=== PATIENT | female | born 1990 | race Caucasian/White ===

== ENCOUNTER 2017-08-14 08:48 | Inpatient (IN) | payer OTHER ==
[2017-08-14 09:29] VITALS: BMI 28.5
[2017-08-14] MEDS ORDERED: Penicillin G Potassium 5 MU in Dextrose 5% In Water 50 ML IV ONE (10:07)
[2017-08-14] MEDS ORDERED: Oxytocin 30 UNIT 30 UNITS/500 ML BAG IV PRN (10:08)
[2017-08-14] MEDS ORDERED: Penicillin G Potassium 2.5 MU in Dextrose 5% In Water 50 ML IV SCH ×2 (10:15→14:00)
[2017-08-14] MEDS ORDERED: Lactated Ringer's 1,000 ML IV SCH (10:15)
[2017-08-14] MEDS ORDERED: Dextrose 5%/Lactated Ringer's 1,000 ML IV SCH (10:15)
--- NOTE | 2017-08-14 10:17 | OBHP ---
Datetime: 08/14/2017 10:12 IP Adm Impression: Term, intrauterine ; No Active Labor; Ruptured Membranes IP Admit Plan: Admit to unit; Initiate labor protocol Admit Comment, IP Provider: at 37+weeks came eith c/o srom at 8 am and irr cts, no vb, ,+fm.pt c/o pain 04/20. obhx 1 x pmh gdma1 med pnv all nkda pshh de soch de ssse +pooling,+nitrazine ve /-2 a/p at 37+weeks prom admit to l_d npo/iv labs pain gustavo gbs prophylaxsis ptocin for augmentation anticipate Pelvic Type - PN: Adequate Extremities - PN: Normal Abdomen - PN: Normal Back - PN: Normal Breast - PN: Normal Lungs - PN: Normal Heart - PN: Normal Thyroid - PN: Normal Neurologic - PN: Normal HEENT - PN: Normal General - PN: Normal FHR - Baseline A Provider: 130 Contraction Comments Provider: q1-5 Comments, ACOG Physical Exam: gravid,non tender ext no edema,no calf sse +poolin, +nitrazine IP Hx Assessment: The History has been Reviewed and is Current EGA AdmitDate IP: 37.0 Vital Signs Provider: Reviewed; Within Normal Limits IP Chief Complaint: Uterine contractions; Suspected ruptured membranes NICHD Variability Prov Fetus A: Moderate 6-25bpm NICHD Accel Fetus A IP Provider: 15X15 FHR Category Provider Fetus A: Category I Dilatation, Provider: 2 Effacement, Provider: 60 Station, Provider: -2 Genitourinary Exam: Normal DTRs - PN: Normal
[2017-08-14] MEDS ORDERED: Penicillin G 5 Million Unit Vial IVPB ONE (10:29)
[2017-08-14] MEDS ORDERED: Oxytocin 30 UNIT 30 UNITS/500 ML BAG IV ONE (11:00)
[2017-08-14 11:01] LABS: BASO % 0.3 % (0.0-2.0); EOS % 0.4 % (0.0-4.0); HEMATOCRIT 32.5 % (34.0-47.0); LYMPH # 5.1 K/uL (1.0-4.3); LYMPH % 44.4 % (20.0-40.0); MEAN CORPUSCULAR HEMOGLOBIN 25.1 pg (27.0-31.0); MEAN CORPUSCULAR HGB CONC 32.8 g/dL (33.0-37.0); MEAN PLATELET VOLUME 8.2 fL (7.2-11.7); MONO # 0.7 K/uL (0.0-0.8); MONO % 6.1 % (0.0-10.0); NRBC % 0.2 % (0.0-2.0); RED CELL DISTRIBUTION WIDTH 15.6 % (11.5-14.5); WHITE BLOOD COUNT 11.5 K/uL (4.8-10.8)
[2017-08-14 11:02] LABS: MEAN CELL VOLUME 76.7 fL (81.0-99.0)
[2017-08-14 11:06] LABS: RBC URINE 46 /hpf (0-3); URINE BILIRUBIN NEGATIVE (NEGATIVE); URINE BLOOD 1+ (NEGATIVE); URINE COLOR Yellow (YELLOW); URINE GLUCOSE (UA) NORMAL (Normal); URINE KETONE NEGATIVE (NEGATIVE); URINE LEUKOCYTE ESTERASE NEG Leu/uL (Negative); URINE PROTEIN 1+ mg/dL (NEGATIVE); URINE UROBILINOGEN NORMAL mg/dL (0.2-1.0); WBC URINE 4 /hpf (0-5)
[2017-08-14 11:23] LABS: CHLORIDE 105 mmol/L (98-107)
[2017-08-14 11:24] LABS: POTASSIUM 3.7 mmol/L (3.6-5.2); SODIUM 133 mmol/L (132-148)
[2017-08-14 11:26] LABS: ALB/GLOB RATIO 0.8 (1.0-2.1); ALKALINE PHOSPHATASE 119 U/L (38-126); AST/SGOT 24 U/L (14-36); BILIRUBIN,TOTAL 0.6 mg/dL (0.2-1.3); BLOOD UREA NITROGEN 5 mg/dL (7-17); CARBON DIOXIDE 19 mmol/L (22-30); GFR AFRICAN-AMERICAN > 60; GLUCOSE,RANDOM 71 mg/dL (65-105); TOTAL PROTEIN 6.6 g/dL (6.3-8.3)
[2017-08-14 11:27] LABS: ALT/SGPT 30 U/L (9-52)
[2017-08-14] MEDS ORDERED: Bupivacaine 0.125%/FentaNYL 200 ML EPI ONE (13:58)
[2017-08-14] MEDS ORDERED: Oxycodone/Acetaminophen 5/325 mg Tab PO PRN ×2 (17:10)
--- NOTE | 2017-08-14 17:11 | OBDS ---
DELIVERY PERSONNEL Delivery Doctor: Cem Montesinos MD Latexer: Loulou Purcell RN Anesthesiologist: Kate Conte MD MATERNAL INFORMATION Delivery Anesthesia: None Provider Comments: baby deliverd in jorge endometrium clean no com 9/9 LABOR SUMMARY EDC: 09/04/2017 00:00 LABOR INFORMATION Group B Beta Strep: Positive (Annotations: GBS positive in urine culture05/27/17, Dr. Montesinos notified . Call placed to [facility] @ 1030 today, no vaginal GBS culture done as per clinic staff, and that urine culture positive MEEK, Dr. Montesinos notified.) MEMBRANES Membranes Rupture Method: Spontaneous Rupture of Membranes: 08/14/2017 08:00 Length of Rupture (hrs): 8.95 Amniotic Fluid Color: Clear Amniotic Fluid Amount: Moderate Amniotic Fluid Odor: Normal STAGES OF LABOR Stage 3 hrs: 0 Stage 3 min: 3 VAGINAL DELIVERY Episiotomy: None Laceration Extension: Second Degree Laceration Type: Perineal Laceration Repair Note: repaied with 3 chromic Sponge Count Correct: Yes Sharps Count Correct: Yes BABY A INFORMATION Infant Delivery Date/Time: 08/14/2017 16:57 Method of Delivery: Vaginal Born in Route : No : N/A Forceps: N/A Vacuum Extraction: N/A Shoulder Dystocia : No SHOULDER DYSTOCIA BABY A Delivery Date/Time: 08/14/2017 16:57 PRESENTATION/POSITION BABY A Presentation: Cephalic Cephalic Presentation: Vertex Vertex Position: Left Occipital Anterior Breech Presentation: N/A PLACENTA INFORMATION BABY A Placenta Delivery Time : 08/14/2017 17:00 Placenta Method of Delivery: Spontaneous Placenta Status: Delivered SCORES BABY A Heart Rate 1 min: >100 bpm Resp Effort 1 min: Good Cry Reflex Irritability 1 min: Cough or Sneeze or Pulls Away Muscle Tone 1 min: Active Motion Color 1 min: Body [place], Extremities Blue Resuscitation Effort 1 min: Tactile Stimulation SCORE 1 MIN: 9 Heart Rate 5 min: >100 bpm Resp Effort 5 min: Good Cry Reflex Irritability 5 min: Cough or Sneeze or Pulls Away Muscle Tone 5 min: Active Motion Color 5 min: Body [place], Extremities Blue SCORE 5 MIN: 9 INFORMATION BABY A Gestational Age at Delivery: 37.0 Gestational Status: Term Infant Outcome : Liveborn Condition : Stable Sex: Male IDENTIFICATION/MEDS BABY A ID Band Number: [id number] ID Band Location: Left Leg; Left Arm Sensor Applied: Yes Sensor Number: [id number] Sensor Location : Cord Clamp Vitamin K Given : Aquamephyton 1 mg IM; Not Given Erythromycin Given: Not Given WEIGHT/LENGTH BABY A Birthweight (gms): 3800 Weight (lb): 8 Infant Weight (oz): 6 Infant Length Inches: 20.00 Length cms: 50.8 CORD INFORMATION BABY A No. Cord Vessels: 3 Nuchal Cord : N/A Nuchal Cord Other: N/A Cord Blood Taken: Yes Infant Suction: Mouth; Nose
[2017-08-15 08:15] LABS: BASO % 0.3 % (0.0-2.0); EOS # 0.1 K/uL (0.0-0.7); EOS % 0.3 % (0.0-4.0); HEMATOCRIT 33.6 % (34.0-47.0); LYMPH # 5.8 K/uL (1.0-4.3); LYMPH % 39.3 % (20.0-40.0); MEAN CELL VOLUME 76.3 fL (81.0-99.0); MEAN CORPUSCULAR HEMOGLOBIN 25.5 pg (27.0-31.0); MEAN CORPUSCULAR HGB CONC 33.4 g/dL (33.0-37.0); MEAN PLATELET VOLUME 8.1 fL (7.2-11.7); MONO % 6.8 % (0.0-10.0); NRBC % 0.1 % (0.0-2.0); WHITE BLOOD COUNT 14.8 K/uL (4.8-10.8)
--- NOTE | 2017-08-15 08:47 | OBPPN ---
Datetime: 08/15/2017 07:24 PP Pain Prov: Within normal limits PP Nausea Prov: Denies PP Flatus Prov: Yes PP BM Prov: No PP Breasts Prov: Normal PP Heart Prov: Normal PP Lungs Prov: Normal PP Abdomen/Uterus Prov: Normal PP Lochia Prov: Normal PP Vulva/Perineum Prov: Normal PP CVA Tenderness Prov: Normal PP Extremities Prov: Normal PP C/S Incision Prov: Normal PP Progress Prov: Normal PP Impression Prov: Normal progression PP Plan Prov: Continue present management PP Progress Note Prov: Patient was seen and examined at bedside in the AM. Patient states her pain is currently 3/10. She denies fever, nausea, or vomiting. Patient states she is breast feeding. She currently denies any other complaints at this time. Objective: Awake, alert and oriented x3. Abdomen: Soft, distended, fundus height is one finger be low the umbilicus. Lower extremity negative for tenderness or edema. A/P: 27year old s/p day 1 vaginal delivery 1.) Continue pain mangement 2.) Encourage ambulation 3.) Continue breast feeding Sally Castañeda PGY-1 OB attending Patient examiend.agree with resident exam, assessment and plan Vital Signs Provider PP: Reviewed; Within Normal Limits
[2017-08-15 08:58] LABS: CHLORIDE 104 mmol/L (98-107); SODIUM 132 mmol/L (132-148)
[2017-08-15 08:59] LABS: POTASSIUM 3.6 mmol/L (3.6-5.2)
[2017-08-15 09:01] LABS: ALB/GLOB RATIO 0.7 (1.0-2.1); ALKALINE PHOSPHATASE 110 U/L (38-126); AST/SGOT 38 U/L (14-36); BILIRUBIN,TOTAL 0.6 mg/dL (0.2-1.3); BLOOD UREA NITROGEN 4 mg/dL (7-17); CARBON DIOXIDE 20 mmol/L (22-30); GFR AFRICAN-AMERICAN > 60; TOTAL PROTEIN 6.5 g/dL (6.3-8.3)
[2017-08-15 09:02] LABS: ALT/SGPT 29 U/L (9-52); CALCIUM 8.3 mg/dl (8.6-10.4); GLUCOSE,RANDOM 72 mg/dL (65-105)
[2017-08-16 08:22] VITALS: BP 98/61; PULSE 68; RESP 18; TEMP 97.4; O2SAT 99
--- NOTE | 2017-08-16 22:22 | OBDCSUM ---
Datetime: 08/16/2017 08:12 Disch Instr Activity: Normal activity; May Shower Discharge Diet restrict Prov: none Discharge Time: 08/16/2017 13:00 Disch Referrals: None Contraception discussed, Prov: Yes Disch Activity Restrictions: No exercising; No lifting; No sexual activity; Nothing in vagina - Inte rcourse, tampons, douche Contraception after Delivery: Not Planning to Use
--- NOTE | 2017-08-16 22:22 | OBPPN ---
Datetime: 08/16/2017 22:15 PP Pain Prov: Within normal limits PP Nausea Prov: Denies PP Flatus Prov: Yes PP BM Prov: Yes PP Breasts Prov: Normal PP Heart Prov: Normal PP Lungs Prov: Normal PP Abdomen/Uterus Prov: Normal PP Lochia Prov: Normal PP Vulva/Perineum Prov: Not Done PP CVA Tenderness Prov: Normal PP Extremities Prov: Normal PP C/S Incision Prov: Not Applicable PP Progress Prov: Normal PP Comments Phys Exam Prov: Abdomen: Soft. non distended. Fundus firm, mobile. non tender. 1FB below umbilicus. Mild lochia rubra All other systems reviewed and are negative PP Impression Prov: Normal progression PP Plan Prov: Discharge PP Progress Note Prov: Patient received in room 459 at approximately 0755hours: present. (+) Breast- and bottlefeeding. Voiding and ambulating without difficulty. Denies nausea, vomiting P.E.: as above. WD in NAD. Awake, alert, oriented to time, person and place. Pleasant and ariane ative - PPD#1 H/H 11.2/33.6 Assessment: 27 y.o. P2. S/P . Afebrile, vital signs stable. Not interested in contraception. Clinically stable. Plan: 1) Discharge home 2) See full discharge instructions Vital Signs Provider PP: Reviewed; Within Normal Limits
== END 2017-08-16 16:00 | disposition home or self-care (01) | DRG 372 ==
LOC: C.EROB 08:48 → C.4D 08:59 → C.4M 19:44
PROVIDERS: ADMIT Obstetrics & Gynecology; ATTEND Obstetrics & Gynecology
PROC: 10E0XZZ Delivery of Products of Conception, External Approach (ICD-10-PCS; principal; 2017-08-14)
PROC: 0KQM0ZZ Repair Perineum Muscle, Open Approach (ICD-10-PCS; 2017-08-14)
DX: O42.913 Preterm premature rupture of membranes, unspecified as to length of time between rupture and onset of labor, third trimester (principal); O70.1 Second degree perineal laceration during delivery; Z37.0 Single live birth; Z86.32 Personal history of gestational diabetes; Z3A.37 37 weeks gestation of pregnancy

== ENCOUNTER 2017-09-27 12:01 | Emergency (ER) | payer OTHER ==
[2017-09-27 12:01] VITALS: BMI 28.5
[2017-09-27 12:11] VITALS: RESP 18
--- NOTE | 2017-09-27 14:09 | C.PDOC ---
History Of Present Illness 27 year old female presents to the ED for evaluation of sore throat (L>R) which began 1 week ago. Patient denies fever/chills, ear pain, cough, runny nose, rash , or sick contacts. Time Seen by Provider: 09/27/17 12:13 Chief Complaint (Nursing): ENT Problem History Per: Patient History/Exam Limitations: no limitations Onset/Duration Of Symptoms: Days (1 week) Current Symptoms Are (Timing): Still Present Location Of Pain: Throat Sick Contacts (Context): None Associated Symptoms: Sore Throat. denies: Fever, Chills, Cough Ear Symptoms: Bilateral: None Severity: Mild Additional History Per: Patient Past Medical History Reviewed: Historical Data, Nursing Documentation, Vital Signs Vital Signs: Last Vital Signs Temp 98.2 F 09/27/17 14:14 Pulse 60 09/27/17 14:14 Resp 18 09/27/17 14:14 BP 100/67 09/27/17 14:14 Pulse Ox 99 09/27/17 17:08 Surgical History: No Surg Hx - [facility] Procedures DELIVERY OF PRODUCTS OF CONCEPTION, EXTERNAL APPROACH (08/14/17) EPISIOTOMY (01/31/15) REPAIR PERINEUM MUSCLE, OPEN APPROACH (08/14/17) Family History: States: No Known Family Hx - Social History Hx Alcohol Use: No Hx Substance Use: No Review Of Systems Except As Marked, All Systems Reviewed And Found Negative. Constitutional: Negative for: Fever, Chills ENT: Positive for: Throat Pain. Negative for: Ear Pain, Nose Discharge Respiratory: Negative for: Cough, Shortness of Breath Gastrointestinal: Negative for: Nausea, Vomiting, Abdominal Pain Genitourinary: Negative for: Dysuria, Hematuria Skin: Negative for: Rash Physical Exam - Physical Exam Appears: Well, Non-toxic, No Acute Distress Skin: Normal Color, Warm, Dry, No Rash Eye(s): bilateral: Normal Inspection Ear(s): Bilateral: Normal Nose: Normal, No Discharge Oral Mucosa: Moist Throat: Erythema, No Exudate, No Drooling, Other (uvula midline and normal in appearance) Neck: Normal ROM, Supple Lymphatic: Normal Exam, No Adenopathy Cardiovascular: Rhythm Regular Respiratory: Normal Breath Sounds, No Rales, No Rhonchi, No Wheezing Neurological/Psych: Oriented x3 Gait: Steady ED Course And Treatment O2 Sat by Pulse Oximetry: 99 (on RA) Pulse Ox Interpretation: Normal Progress Note: Rapid Strep test ordered and reviewed - results negative. Patient reassured that symptoms are likely viral, and that treatment is supportive. Rxs given for tylenol and chloraseptic. Patient instructed to drink plenty of fluids, and follow up with PMD/clinic in 1-2 days. She understands she should return to ED if symptoms worsen. Disposition Counseled Patient/Family Regarding: Diagnosis, Need For Followup, Rx Given - Disposition Referrals: [facility] [Outside] Disposition: HOME/ ROUTINE Disposition Time: 14:10 Condition: STABLE Additional Instructions: FOLLOW UP WITH YOUR DOCTOR/CLINIC IN 1-2 DAYS USE MEDICATIONS NEEDED DRINK PLENTY OF FLUIDS RETIURN TO EMERGENCY ROOM IF SYMPTOMS WORSEN Prescriptions: Acetaminophen [Tylenol 325mg tab] 650 mg PO Q6 PRN #30 tab PRN Reason: pain/fever Phenol/Glycerin [Chloraseptic Max [place]] 1 spray MM Q6 PRN #1 spray PRN Reason: THROAT PAIN Instructions: Pharyngitis (ED) Forms: [employer] (Georgian) Print Language: AZERBAIJANI - POA Present On Arrival: None - Clinical Impression Clinical Impression: Acute viral pharyngitis - Scribe Statement The provider has reviewed the documentation as recorded by the Scribe (Tiffany Hope) Provider Attestation: All medical record entries made by the Scribe were at my direction and personally dictated by me. I have reviewed the chart and agree that the record accurately reflects my personal performance of the history, physical exam, medical decision making, and the department course for this patient. I have also personally directed, reviewed, and agree with the discharge instructions and disposition.
[2017-09-27 14:16] VITALS: BP 100/67; PULSE 60; TEMP 98.2
[2017-09-27 16:57] VITALS: O2SAT 99
== END 2017-09-27 14:16 | disposition home or self-care (01) ==
LOC: C.ER 12:01
DX: J02.9 Acute pharyngitis, unspecified (principal)

== ENCOUNTER 2018-05-15 12:35 | Emergency (ER) | payer MEDICAID, OTHER ==
[2018-05-15 12:35] VITALS: BMI 28.5
[2018-05-15 12:48] VITALS: RESP 18; O2SAT 98
[2018-05-15] MEDS ORDERED: Sodium Chloride 0.9% 1,000 ML IV ONE (13:09)
[2018-05-15] MEDS ORDERED: Sodium Chloride 0.9% 1,000 ML ONE (13:19)
[2018-05-15 13:26] LABS: BASO # 0.1 K/uL (0.0-0.2); BASO % 0.6 % (0.0-2.0); EOS # 0.1 K/uL (0.0-0.7); HEMOGLOBIN 12.1 g/dL (11.0-16.0); LYMPH # 5.2 K/uL (1.0-4.3); LYMPH % 55.6 % (20.0-40.0); MEAN CELL VOLUME 83.6 fL (81.0-99.0); MEAN CORPUSCULAR HEMOGLOBIN 28.5 pg (27.0-31.0); MEAN PLATELET VOLUME 8.8 fL (7.2-11.7); MONO # 0.6 K/uL (0.0-0.8); NEUT # 3.4 K/uL (1.8-7.0); NEUT % 36.8 % (50.0-75.0); RBC 4.25 Mil/uL (3.80-5.20); RED CELL DISTRIBUTION WIDTH 13.7 % (11.5-14.5); WHITE BLOOD COUNT 9.3 K/uL (4.8-10.8)
[2018-05-15 13:30] LABS: SQUAMOUS EPITHIAL 8 /hpf (0-5); URINE BILIRUBIN NEGATIVE (NEGATIVE); URINE BLOOD NEGATIVE (NEGATIVE); URINE CLARITY Hazy (Clear); URINE COLOR Yellow (YELLOW); URINE GLUCOSE (UA) NORMAL (Normal); URINE LEUKOCYTE ESTERASE NEG Leu/uL (Negative); URINE PROTEIN NEGATIVE (NEGATIVE); URINE UROBILINOGEN NORMAL mg/dL (0.2-1.0)
--- NOTE | 2018-05-15 13:34 | C.PDOC ---
History Of Present Illness 28 y/o female presents to the ER complaining of lethargy and weakness in body which has been present since yesterday. Patient denies history of anxiety and she lives at home with her 2 kids. Patient reports that she is eating and drinking well.Denies having headache, fever and chills. Time Seen by Provider: 05/15/18 13:06 Chief Complaint (Nursing): Weakness/Neurological Deficit History Per: Patient History/Exam Limitations: no limitations Onset/Duration Of Symptoms: Days Current Symptoms Are (Timing): Still Present Severity: Moderate Past Medical History Reviewed: Historical Data, Nursing Documentation, Vital Signs Vital Signs: Last Vital Signs Temp 98 F 05/15/18 12:44 Pulse 78 05/15/18 12:44 Resp 18 05/15/18 12:44 BP 109/77 05/15/18 12:44 Pulse Ox 98 05/15/18 13:39 - Medical History PMH: No Chronic Diseases Denies: Depression, Diabetes, HTN Surgical History: No Surg Hx - [facility] Procedures DELIVERY OF PRODUCTS OF CONCEPTION, EXTERNAL APPROACH (08/14/17) EPISIOTOMY (01/31/15) REPAIR PERINEUM MUSCLE, OPEN APPROACH (08/14/17) Family History: States: No Known Family Hx - Social History Hx Alcohol Use: No Hx Substance Use: No Review Of Systems Except As Marked, All Systems Reviewed And Found Negative. Constitutional: Positive for: Weakness. Negative for: Fever, Chills Neurological: Negative for: Headache Physical Exam - Physical Exam Appears: Non-toxic, Other (anxious) Skin: Normal Color, Warm, Dry Head: Atraumatic, Normacephalic Eye(s): bilateral: Normal Inspection Nose: Normal Oral Mucosa: Moist Neck: Supple Chest: Deformity Cardiovascular: Rhythm Regular Respiratory: Normal Breath Sounds, No Rales, No Rhonchi, No Wheezing Gastrointestinal/Abdominal: Normal Exam, Soft, No Tenderness, No Guarding, No Rebound Extremity: Normal ROM Neurological/Psych: Oriented x3, Normal Speech Gait: Steady ED Course And Treatment - Laboratory Results Result Diagrams: 05/15/18 13:18 05/15/18 13:18 Lab Interpretation: Normal (ua neg.) Urine POC: Negative ECG: Interpreted By Me ECG Rhythm: Sinus Rhythm ECG Interpretation: Normal Rate From EC O2 Sat by Pulse Oximetry: 98 (RA) Pulse Ox Interpretation: Normal Progress Note: NS Reevaluation Time: 13:47 (remains asymptomatic.) Medical Decision Making Medical Decision Making: Plan: --Labs --UA --ECG --IV Fluids anxiety vs seeking preg test? workup, exam, vital signs all normal Disposition Doctor Will See Patient In The: Office Counseled Patient/Family Regarding: Studies Performed, Diagnosis - Disposition Disposition: HOME/ ROUTINE Disposition Time: 13:47 Condition: GOOD Forms: [facility] (Yakut) - Clinical Impression Clinical Impression: Malaise and fatigue - Scribe Statement The provider has reviewed the documentation as recorded by the Jonahibe Brian Daniel Provider Attestation: All medical record entries made by the Jonahibe were at my direction and personally dictated by me. I have reviewed the chart and agree that the record accurately reflects my personal performance of the history, physical exam, medical decision making, and the department course for this patient. I have also personally directed, reviewed, and agree with the discharge instructions and disposition.
[2018-05-15 13:40] LABS: ALB/GLOB RATIO 1.2 (1.0-2.1); ALBUMIN 4.2 g/dL (3.5-5.0); ALT/SGPT 27 U/L (9-52); AST/SGOT 30 U/L (14-36); BLOOD UREA NITROGEN 8 mg/dL (7-17); CALCIUM 8.7 mg/dl (8.6-10.4); GFR AFRICAN-AMERICAN > 60; GFR NON-AFRICAN AMERICAN > 60
[2018-05-15 14:37] VITALS: BP 101/66; PULSE 61; TEMP 97.9
--- NOTE | 2018-05-18 21:47 | CARD ---
APPROVED REPORT EKG Measurement Heart [id number] <Conclusion> Normal sinus rhythm Normal ECG
== END 2018-05-15 14:35 | disposition home or self-care (01) ==
LOC: C.ER 12:35
DX: R53.83 Other fatigue (principal)
CPT/HCPCS: 80053; 81001; 84484; 84703; 85025; 93005; 96360; 99285; J7030

== ENCOUNTER 2019-01-06 16:52 | Emergency (ER) | payer MEDICAID ==
[2019-01-06 16:52] VITALS: BMI 28.5
[2019-01-06 17:08] VITALS: BP 96/68; PULSE 118; RESP 20; TEMP 98.4; O2SAT 98
--- NOTE | 2019-01-06 17:27 | C.PDOC ---
Time Seen by Provider: 01/06/19 17:15 Chief Complaint (Nursing): Flu-like Symptoms History Per: Patient Onset/Duration Of Symptoms: Days (1) Current Symptoms Are (Timing): Still Present Associated Symptoms: Fever, Chills, Sore Throat, Cough, Myalgias, Nasal Congestion, Nausea, Vomiting Severity: Moderate Recent travel outside of the [place]: No Additional History Per: Prior Records Past Medical History Reviewed: Historical Data, Nursing Documentation, Vital Signs Vital Signs: Last Vital Signs Temp 98.4 F 01/06/19 16:59 Pulse 118 H 01/06/19 16:59 Resp 20 01/06/19 16:59 BP 96/68 L 01/06/19 16:59 Pulse Ox 98 01/06/19 16:59 - Medical History PMH: No Chronic Diseases Surgical History: No Surg Hx - [facility] Procedures DELIVERY OF PRODUCTS OF CONCEPTION, EXTERNAL APPROACH (08/14/17) EPISIOTOMY (01/31/15) REPAIR PERINEUM MUSCLE, OPEN APPROACH (08/14/17) Family History: States: Unknown Family Hx - Social History Hx Tobacco Use: No Hx Alcohol Use: No Hx Substance Use: No - Immunization History Hx Tetanus Toxoid Vaccination: No Hx Influenza Vaccination: No Hx Pneumococcal Vaccination: No Review Of Systems Except As Marked, All Systems Reviewed And Found Negative. Constitutional: Positive for: Fever, Malaise ENT: Positive for: Nose Congestion. Negative for: Ear Pain Cardiovascular: Negative for: Chest Pain Respiratory: Positive for: Cough. Negative for: Shortness of Breath Gastrointestinal: Negative for: Abdominal Pain, Diarrhea, Hematemesis Genitourinary: Negative for: Dysuria Musculoskeletal: Negative for: Neck Pain Skin: Negative for: Rash Neurological: Negative for: Weakness, Seizures, Altered Mental Status Physical Exam - Physical Exam Appears: Non-toxic, No Acute Distress Skin: Normal Color, Warm, Dry, No Rash Head: Atraumatic, Normacephalic Eye(s): bilateral: Normal Inspection, PERRL, EOMI Oral Mucosa: Moist Throat: Normal Neck: Normal ROM, Supple Cardiovascular: Rhythm Regular Respiratory: Normal Breath Sounds, No Accessory Muscle Use Gastrointestinal/Abdominal: Soft, No Tenderness, No Distention Back: No CVA Tenderness Extremity: Normal ROM Neurological/Psych: Oriented x3, Normal Speech, Normal Cognition, Normal Motor, Normal Sensation ED Course And Treatment O2 Sat by Pulse Oximetry: 98 Pulse Ox Interpretation: Normal Disposition Counseled Patient/Family Regarding: Diagnosis, Need For Followup, Rx Given - Disposition Referrals: Jaclyn Lee MD [Medical Doctor] - Disposition: HOME/ ROUTINE Disposition Time: 17:26 Condition: STABLE Additional Instructions: Drink plenty of fluids. Follow up with your doctor. Return to the ER if you develop shortness of breath, not tolerating fluids, worsening of symptoms or if you have any other concerns. Prescriptions: Oseltamivir Cap [Tamiflu] 75 mg PO BID #10 cap Promethazine/Dextromethorphan [Promethazine-Dm Syrup] 5 ml PO Q4 PRN #1 syrup PRN Reason: Cough And Congestion Instructions: Flu, Adult (DC) - Clinical Impression Clinical Impression: Influenza-like illness
== END 2019-01-06 17:37 | disposition home or self-care (01) ==
LOC: C.ER 16:52
DX: J11.1 Influenza due to unidentified influenza virus with other respiratory manifestations (principal)

== ENCOUNTER 2019-01-11 19:06 | Emergency (ER) | payer MEDICAID ==
[2019-01-11 19:06] VITALS: BMI 28.5
[2019-01-11 19:16] VITALS: BP 98/65; PULSE 98; RESP 18; TEMP 97.9; O2SAT 98
--- NOTE | 2019-01-11 19:29 | C.PDOC ---
History Of Present Illness 29 y/o female, recently treated for the flu, comes in to ED complaining of a 2 day history of her ears feeling clogged and full and some nasal congestion. Patient denies fever or chills, no headache. Patient has no other complaints at this time. Time Seen by Provider: 01/11/19 19:16 Chief Complaint (Nursing): ENT Problem History Per: Patient History/Exam Limitations: None Onset/Duration Of Symptoms: Days Current Symptoms Are (Timing): Still Present Past Medical History Reviewed: Historical Data, Nursing Documentation, Vital Signs Vital Signs: Last Vital Signs Temp 97.9 F 01/11/19 19:14 Pulse 98 H 01/11/19 19:14 Resp 18 01/11/19 19:14 BP 98/65 L 01/11/19 19:14 Pulse Ox 98 01/11/19 19:14 - Medical History PMH: Denies: Depression, HTN - [facility] Procedures DELIVERY OF PRODUCTS OF CONCEPTION, EXTERNAL APPROACH (08/14/17) EPISIOTOMY (01/31/15) REPAIR PERINEUM MUSCLE, OPEN APPROACH (08/14/17) Family History: States: No Known Family Hx - Social History Hx Tobacco Use: No Hx Alcohol Use: No Hx Substance Use: No - Immunization History Hx Tetanus Toxoid Vaccination: No Hx Influenza Vaccination: No Hx Pneumococcal Vaccination: No Review Of Systems Constitutional: Negative for: Fever, Chills ENT: Positive for: Nose Congestion, Other (Clogged ears). Negative for: Ear Discharge, Throat Pain Respiratory: Negative for: Cough Gastrointestinal: Negative for: Nausea Neurological: Negative for: Headache, Dizziness Physical Exam - Physical Exam Appears: Non-toxic, No Acute Distress Skin: Warm, Dry Head: Atraumatic, Normacephalic, Other (no sinus tenderness) Eye(s): bilateral: PERRL Ear(s): Bilateral: Normal Nose: No Discharge, No Epistaxis Oral Mucosa: Moist Tongue: Normal Appearing Lips: Normal Appearing Gingiva: Normal Appearing Throat: No Erythema, No Exudate Neck: Supple Lymphatic: No Adenopathy Cardiovascular: Rhythm Regular, No Murmur Respiratory: No Decreased Breath Sounds, No Rales, No Rhonchi, No Wheezing Extremity: Bilateral: Atraumatic Neurological/Psych: Oriented x3, Normal Speech ED Course And Treatment O2 Sat by Pulse Oximetry: 98 (RA) Pulse Ox Interpretation: Normal Medical Decision Making Medical Decision Making: pt with bilateral ear fullness and nasal congestion:\ Plan: --POC --Sudafed Disposition Counseled Patient/Family Regarding: Diagnosis, Need For Followup, Rx Given - Disposition Disposition: HOME/ ROUTINE Disposition Time: 19:27 Condition: GOOD Additional Instructions: Take Tylenol or Motrin for pain if needed. Take Sudafed 60 mg by mouth every 6 hours for next few days. Follow up with your primary care doctor in 2-=3 days. Return to ER for any worse symptoms. Prescriptions: Pseudoephedrine HCl [Sudafed] 60 mg PO Q6 #24 tablet Instructions: Eustachian Tube Problems (DC) Forms: [facility] (Albanian), General Discharge Instructions - Clinical Impression Clinical Impression: Congestion of both ears - PA / MANAGER BAR / Resident Statement MD/DO has reviewed & agrees with the documentation as recorded. - Scribe Statement The provider has reviewed the documentation as recorded by the Scribe Dawn Espinoza All medical record entries made by the Scribe were at my direction and personally dictated by me. I have reviewed the chart and agree that the record accurately reflects my personal performance of the history, physical exam, medical decision making, and the department course for this patient. I have also personally directed, reviewed, and agree with the discharge instructions and disposition.
== END 2019-01-11 19:41 | disposition home or self-care (01) ==
LOC: C.ER 19:06
DX: H93.8X3 Other specified disorders of ear, bilateral (principal)